=== PATIENT | male | born 1990 | race African-American/Black ===

== ENCOUNTER 2023-08-12 19:04 | Emergency (ER) | payer OTHER ==
[~2023-08-12] VITALS: Ht 182.9 cm; Wt 104.6 kg
[2023-08-12 19:06] VITALS: TEMP 99.3
[2023-08-12 19:54] LABS: BASO % 0.7 % (0.0-1.0); EOS # 0.1 10^3/uL (0.0-0.5); EOS % 1.9 % (0.0-3.0); HEMATOCRIT 41.1 % (42.0-52.0); HEMOGLOBIN 14.2 g/dl (13.5-17.5); LYMPH # 1.3 10^3/uL (1.5-5.0); LYMPH % 25.1 % (24.0-44.0); MEAN CORPUSCULAR HEMOGLOBIN 31.3 pg (27.0-33.0); MEAN CORPUSCULAR HGB CONC 34.5 g/dl (32.0-36.5); MEAN CORPUSCULAR VOLUME 90.5 fl (80.0-96.0); MONO # 0.5 10^3/uL (0.0-0.8); MONO % 8.6 % (2.0-8.0); NEUTROPHILS # 3.4 10^3/uL (1.5-8.5); NEUTROPHILS % 62.8 % (36.0-66.0); PLATELET COUNT, AUTOMATED 165 10^3/uL (150-450); RED BLOOD COUNT 4.54 10^6/uL (4.30-6.10); WHITE BLOOD COUNT 5.3 10^3/uL (4.0-10.0)
[2023-08-12 20:05] LABS: CK-MB VALUE MASS 1.9 NG/ML (<3.6)
[2023-08-12 20:07] LABS: BLOOD UREA NITROGEN 15 MG/DL (9-23); CALCIUM LEVEL 9.3 MG/DL (8.5-10.1); CARBON DIOXIDE LEVEL 28 MMOL/L (20-31); CHLORIDE LEVEL 107 MMOL/L (98-107); CPK CREATINE PHOSPHOKINASE 302 U/L (46-171); CREATININE FOR GFR 1.07 MG/DL (0.70-1.30); GLOMERULAR FILTRATION RATE > 60.0 (>60); GLUCOSE, FASTING 102 MG/DL (60-100); MB/CK RELATIVE INDEX 0.62 (< OR =4); SODIUM LEVEL 141 MMOL/L (136-145)
[2023-08-12 21:09] LABS: CK-MB VALUE MASS 1.9 NG/ML (<3.6)
[2023-08-12 21:10] LABS: MB/CK RELATIVE INDEX 0.67 (< OR =4)
[2023-08-12 21:30] VITALS: BP 120/79; O2SAT 98
== END 2023-08-12 21:48 | disposition home or self-care (01) ==
LOC: M ED 19:04
DX: R07.9 Chest pain, unspecified (principal); F17.200 Nicotine dependence, unspecified, uncomplicated; Z91.048 Other nonmedicinal substance allergy status

== ENCOUNTER 2023-09-10 08:24 | Emergency (ER) | payer OTHER ==
[~2023-09-10] VITALS: Ht 185.4 cm; Wt 97.7 kg
[2023-09-10 09:09] VITALS: BP 133/78; TEMP 97.5; O2SAT 97
[2023-09-10] MEDS ORDERED: MED REC IN PROGRESS XX SCH (09:40)
[2023-09-10] MEDS ORDERED: FEXO-116 PO (09:48)
[2023-09-10] MEDS ORDERED: HOME MED LIST COMPLETE! XX SCH (09:55)
[2023-09-10 09:57] LABS: HEMOGLOBIN 14.4 g/dl (13.5-17.5); MEAN CORPUSCULAR HEMOGLOBIN 31.3 pg (27.0-33.0); MEAN CORPUSCULAR HGB CONC 34.3 g/dl (32.0-36.5); MEAN CORPUSCULAR VOLUME 91.3 fl (80.0-96.0); PLATELET COUNT, AUTOMATED 163 10^3/uL (150-450); WHITE BLOOD COUNT 4.2 10^3/uL (4.0-10.0)
[2023-09-10 10:21] LABS: AMPHETAMINES LEVEL URINE NEGATIVE (NEGATIVE); BARBITURATES URINE NEGATIVE (NEGATIVE); BENZODIAZEPINES URINE NEGATIVE (NEGATIVE); CANNABINOIDS URINE NEGATIVE (NEGATIVE); COCAINE METABOLITE URINE NEGATIVE (NEGATIVE); METHADONE URINE NEGATIVE (NEGATIVE); OPIATES URINE NEGATIVE (NEGATIVE); PHENCYCLIDINE URINE NEGATIVE (NEGATIVE)
[2023-09-10 10:23] LABS: ETHYL ALCOHOL (ETHANOL) < 0.003 % (0.000-0.010)
[2023-09-10 10:25] LABS: ALBUMIN 3.9 G/DL (3.2-5.2); ALKALINE PHOSPHATASE 35 U/L (46-116); ALT/SGPT 28 U/L (7.0-40); AST/SGOT 24 U/L (<34); BILIRUBIN,DIRECT 0.2 MG/DL (<0.4); BILIRUBIN,TOTAL 0.6 MG/DL (0.3-1.2); BLOOD UREA NITROGEN 8 MG/DL (9-23); CALCIUM LEVEL 9.6 MG/DL (8.5-10.1); CARBON DIOXIDE LEVEL 28 MMOL/L (20-31); CHLORIDE LEVEL 104 MMOL/L (98-107); CREATININE FOR GFR 1.16 MG/DL (0.70-1.30); GLOMERULAR FILTRATION RATE > 60.0 (>60); GLUCOSE, FASTING 89 MG/DL (60-100); SALICYLATE LEVEL < 3.0 MG/DL (<30); SODIUM LEVEL 140 MMOL/L (136-145); TOTAL PROTEIN 6.8 G/DL (5.7-8.2)
[2023-09-10] MEDS ORDERED: KEPP1TAB PO (17:29)
[2023-09-10] MEDS ORDERED: levETIRAcetam 250MG TABLET (KEPPRA) PO ONE (17:30)
== END 2023-09-10 18:11 | disposition home or self-care (01) ==
LOC: M ED 08:24
DX: G47.50 Parasomnia, unspecified (principal); Z91.048 Other nonmedicinal substance allergy status; Z79.899 Other long term (current) drug therapy

== ENCOUNTER 2024-02-08 16:27 | Emergency (ER) | payer OTHER ==
[~2024-02-08] VITALS: Ht 185.4 cm; Wt 200.0 kg
[~2024-02-08 16:27] MED LIST: FEXO-116 PO; KEPP1TAB PO
[2024-02-08 17:21] LABS: BASO % 0.6 % (0.0-1.0); EOS # 0.2 10^3/uL (0.0-0.5); EOS % 2.8 % (0.0-3.0); HEMOGLOBIN 14.6 g/dl (13.5-17.5); LYMPH % 17.6 % (24.0-44.0); MEAN CORPUSCULAR HEMOGLOBIN 31.7 pg (27.0-33.0); MEAN CORPUSCULAR HGB CONC 34.8 g/dl (32.0-36.5); MEAN CORPUSCULAR VOLUME 91.1 fl (80.0-96.0); MONO # 0.6 10^3/uL (0.0-0.8); MONO % 10.8 % (2.0-8.0); NEUTROPHILS # 3.7 10^3/uL (1.5-8.5); PLATELET COUNT, AUTOMATED 162 10^3/uL (150-450); RED BLOOD COUNT 4.61 10^6/uL (4.30-6.10); WHITE BLOOD COUNT 5.4 10^3/uL (4.0-10.0)
[2024-02-08 17:42] LABS: BLOOD UREA NITROGEN 14 MG/DL (9-23); CALCIUM LEVEL 9.3 MG/DL (8.5-10.1); CARBON DIOXIDE LEVEL 29 MMOL/L (20-31); CHLORIDE LEVEL 105 MMOL/L (98-107); CPK CREATINE PHOSPHOKINASE 625 U/L (46-171); CREATININE FOR GFR 0.96 MG/DL (0.70-1.30); GLOMERULAR FILTRATION RATE > 60.0 (>60); GLUCOSE, FASTING 82 MG/DL (60-100); POTASSIUM SERUM 3.7 MMOL/L (3.5-5.1); SODIUM LEVEL 139 MMOL/L (136-145)
[2024-02-08 17:53] VITALS: BP 124/79; TEMP 98.9; O2SAT 100
== END 2024-02-08 18:00 | disposition home or self-care (01) ==
LOC: M ED 16:27
DX: R07.9 Chest pain, unspecified (principal); F41.9 Anxiety disorder, unspecified; Z79.1 Long term (current) use of non-steroidal anti-inflammatories (NSAID); Z91.048 Other nonmedicinal substance allergy status

== ENCOUNTER 2024-02-13 10:25 | Inpatient (IN) | payer OTHER ==
[~2024-02-13] VITALS: Ht 185.4 cm; Wt 95.4 kg
[2024-02-13 11:06] LABS: HEMATOCRIT 43.7 % (42.0-52.0); HEMOGLOBIN 14.9 g/dl (13.5-17.5); MEAN CORPUSCULAR HEMOGLOBIN 31.1 pg (27.0-33.0); MEAN CORPUSCULAR HGB CONC 34.1 g/dl (32.0-36.5); MEAN CORPUSCULAR VOLUME 91.2 fl (80.0-96.0); PLATELET COUNT, AUTOMATED 178 10^3/uL (150-450); RED BLOOD COUNT 4.79 10^6/uL (4.30-6.10); WHITE BLOOD COUNT 3.8 10^3/uL (4.0-10.0)
[2024-02-13 11:31] LABS: AMPHETAMINES LEVEL URINE NEGATIVE (NEGATIVE); BARBITURATES URINE NEGATIVE (NEGATIVE); BENZODIAZEPINES URINE NEGATIVE (NEGATIVE); CANNABINOIDS URINE NEGATIVE (NEGATIVE); COCAINE METABOLITE URINE NEGATIVE (NEGATIVE); METHADONE URINE NEGATIVE (NEGATIVE); OPIATES URINE NEGATIVE (NEGATIVE); PHENCYCLIDINE URINE NEGATIVE (NEGATIVE)
[2024-02-13 11:39] LABS: SALICYLATE LEVEL < 3.0 MG/DL (<30)
[2024-02-13 11:40] LABS: ALBUMIN 4.1 G/DL (3.2-5.2); ALKALINE PHOSPHATASE 43 U/L (46-116); ALT/SGPT 31 U/L (7.0-40); AST/SGOT 22 U/L (<34); BILIRUBIN,DIRECT 0.2 MG/DL (<0.4); BILIRUBIN,TOTAL 0.5 MG/DL (0.3-1.2); BLOOD UREA NITROGEN 14 MG/DL (9-23); CALCIUM LEVEL 8.9 MG/DL (8.5-10.1); CARBON DIOXIDE LEVEL 28 MMOL/L (20-31); CHLORIDE LEVEL 107 MMOL/L (98-107); CREATININE FOR GFR 1.06 MG/DL (0.70-1.30); GLOMERULAR FILTRATION RATE > 60.0 (>60); GLUCOSE, FASTING 83 MG/DL (60-100); POTASSIUM SERUM 3.8 MMOL/L (3.5-5.1); SODIUM LEVEL 140 MMOL/L (136-145); TOTAL PROTEIN 7.1 G/DL (5.7-8.2)
[2024-02-13 11:42] LABS: THYROID STIMULATING HORMONE 1.387 uIU/ML (0.55-4.78)
[2024-02-13 11:56] LABS: ETHYL ALCOHOL (ETHANOL) < 0.003 % (0.000-0.010)
[2024-02-13] MEDS: LORazepam 0.5 MG TAB PO ONE (14:19)
[2024-02-13] MEDS ORDERED: HOME MED LIST COMPLETE! XX SCH (14:20)
[2024-02-13] MEDS: LORazepam 1 MG TAB PO ONE (19:36)
[2024-02-14 05:32] LABS: APPEARANCE, URINE CLEAR (CLEAR); BACTERIA, URINE AUTO NEGATIVE (NEGATIVE); BILIRUBIN, URINE AUTO NEGATIVE (NEGATIVE); BLOOD, URINE BLOOD NEGATIVE (NEGATIVE); COLOR, URINE COLORLESS (YELLOW); GLUCOSE, URINE (UA) AUTO NEGATIVE (NEGATIVE); KETONE, URINE AUTO NEGATIVE (NEGATIVE); LEUKOCYTE ESTERASE, URINE AUTO NEGATIVE (NEGATIVE); NITRITE, URINE AUTO NEGATIVE (NEGATIVE); PROTEIN, URINE AUTO NEGATIVE (NEGATIVE); RBC, URINE AUTO 0 /HPF (0-3); SPECIFIC GRAVITY URINE AUTO 1.003 (1.002-1.035); SQUAMOUS EPITHELIAL CELL UR AU 0 /HPF (0-6); UROBILINOGEN, URINE AUTO 0.2 mg/dL (0.0-2.0); WBC, URINE AUTO 0 /HPF (0-3)
[2024-02-14] MEDS: LORazepam 2 MG TAB PO PRN (07:58)
[2024-02-14] MEDS: FEXOFENADINE 60MG TAB PO SCH (08:36)
[2024-02-14] MEDS: NICOTINE 14 MG/24 HR TRANSDERMAL TD ONE (15:59)
[2024-02-14] MEDS ORDERED: MAALOX 30 ML SUSP *UDC PO PRN (17:20)
[2024-02-14] MEDS ORDERED: diphenhydrAMINE 25MG CAP PO PRN (17:20)
[2024-02-14] MEDS ORDERED: traZODone 50 MG TAB PO PRN (17:20)
[2024-02-14] MEDS ORDERED: ACETAMINOPHEN TAB 650MG DOSE (2X325MG) PO PRN (17:20)
[2024-02-14] MEDS ORDERED: IBUPROFEN 400MG TAB PO PRN (17:20)
[2024-02-14] MEDS ORDERED: MOM 30ML SUSPENSION UDC PO PRN (17:20)
[2024-02-14 17:40] VITALS: BP 123/71; TEMP 97.6
[2024-02-15 06:40] VITALS: BP 120/63; TEMP 97.4; O2SAT 100
[2024-02-15] MEDS: NICOTINE 21MG/24HR 1 EA TRANSDERMAL TD SCH (09:00)
[2024-02-15] MEDS ORDERED: NICO21PAT TD (12:43)
== END 2024-02-15 14:15 | disposition home or self-care (01) | DRG 880 ==
LOC: EDBD 10:25 → M ED 11:36 → M ED INP 02-14 17:18 → M PSY 02-14 17:38
PROVIDERS: ADMIT Psychiatry & Neurology Psychiatry; ATTEND Student in an Organized Health Care Education/Training Program
DX: F43.0 Acute stress reaction (principal); F43.20 Adjustment disorder, unspecified; F17.200 Nicotine dependence, unspecified, uncomplicated; Z87.820 Personal history of traumatic brain injury; Z56.4 Discord with boss and workmates; Z71.6 Tobacco abuse counseling; Z79.899 Other long term (current) drug therapy; Z11.52 Encounter for screening for COVID-19

== ENCOUNTER → 2024-06-11 | Outpatient (CLI) | payer OTHER ==
[~2024-06-11] MED LIST changes: +NICO21PAT TD
== END ==
LOC: M RAD 17:18
PROVIDERS: ATTEND Physician Assistant
DX: S90.112A Contusion of left great toe without damage to nail, initial encounter (principal); Y93.9 Activity, unspecified; Y92.9 Unspecified place or not applicable

== ENCOUNTER → 2025-01-08 | Outpatient (REF) | payer OTHER ==
[~2025-01-08] MED LIST changes: -FEXO-116 PO; +FEXO-189 PO
== END ==
LOC: M SMT 17:44
PROVIDERS: ATTEND Urology
DX: Z98.52 Vasectomy status (principal)